=== PATIENT | male | born 1975 | race Two or more races ===

== ENCOUNTER 2023-10-06 22:51 | Emergency (ER) | payer SELFPAY ==
[~2023-10-06] VITALS: Ht 182.9 cm; Wt 115.1 kg
[2023-10-06 23:27] LABS: Urine Bacteria None Seen /hpf (None Seen)
[2023-10-06 23:40] LABS: Urine Blood 2+ /uL (Negative); Urine Clarity Turbid (Clear); Urine Color Colorless (Yellow); Urine Protein, UAD Negative (Negative); Urine Specific Gravity 1.017 (1.001-1.035); Urine Urobilinogen Normal (Negative); Urine WBC 168 /hpf (0 - 3); Urine pH 5.5 (5.0-9.0)
[2023-10-07] MEDS ORDERED: BACDST PO (01:40)
[2023-10-07] MEDS: SULFAMETHOX W/TRIMETH(800/160MG) DS TAB PO ONE (02:55)
[2023-10-07 03:18] VITALS: BP 134/76; PULSE 78; RESP 18; TEMP 97.8
[2023-10-07 03:40] VITALS: O2SAT 99
== END 2023-10-07 03:50 | disposition home or self-care (01) ==
LOC: ER 22:51
DX: N39.0 Urinary tract infection, site not specified (principal)
CPT/HCPCS: 81001